=== PATIENT | female | born 1960 | race Caucasian/White ===

== ENCOUNTER 2018-05-04 09:56 | Inpatient (IN) | payer MEDICARE ==
[2018-05-04] MEDS ORDERED: Midazolam HCl 2 mg/2 ml Vial ONE ×2 (11:03→11:25)
[2018-05-04] MEDS ORDERED: Fentanyl 100 MCG/2 ML VIAL ONE (11:03)
[2018-05-04 11:21] LABS: Hemoglobin 12.2 g/dL (12.0-16.0); Mean Corpuscular HGB CONC 34.5 g/dL (32.0-36.0); Mean Corpuscular Volume 89.9 fL (78.0-98.0); Mean Platelet Volume 6.8 fL (7.4-10.4); Platelet Count 377 thou/uL (130-400); RBC Distribution Width 12.2 % (11.5-14.5); Red Blood Cell (RBC) Count 3.93 mill/uL (4.20-5.40); White Blood Cell (WBC) Count 9.6 thou/uL (4.8-10.8)
[2018-05-04] MEDS ORDERED: CEFAZOLIN/Water 2 GM/20 ML SYRINGE ONE (11:25)
[2018-05-04] MEDS ORDERED: Phenylephrine HCL 10 MG/ML VIAL ONE (11:36)
[2018-05-04 11:41] LABS: Anion Gap 13 mmol/L (10-20); BUN (Urea Nitrogen) 11 mg/dL (9.8-20.1); Calc. Creatinine Clearance 123 mL/min (70-130); Calcium 9.7 mg/dL (7.8-10.44); Carbon Dioxide 27 mmol/L (22-29); Chloride 104 mmol/L (98-107); Estimated GFR-MDRD Greater than 90; Glucose 101 mg/dL (70-105); Potassium 3.8 mmol/L (3.5-5.1); Sodium 140 mmol/L (136-145)
[2018-05-04] MEDS ORDERED: PROPOFOL 200 MG/20 ML VIAL ONE (13:07)
[2018-05-04] MEDS ORDERED: Glycopyrrolate 0.2 MG/ML 5 ML SYRINGE ONE (13:07)
[2018-05-04] MEDS ORDERED: Lidocaine 1% PF 5 ML VIAL ONE (13:07)
[2018-05-04] MEDS ORDERED: Dexamethasone 20 MG/5 ML VIAL ONE (13:07)
[2018-05-04] MEDS ORDERED: ePHEDrine/0.9% NaCl/PF SYRINGE 50 mg/10 ml ONE (13:07)
[2018-05-04] MEDS ORDERED: Ketorolac Tromethamine 30 MG/ML VIAL ONE (13:07)
[2018-05-04] MEDS ORDERED: Ondansetron HCl/PF 4 MG/2 ML Vial ONE (13:07)
[2018-05-04] MEDS ORDERED: Ondansetron HCl/PF 4 MG/2 ML Vial IVP PRN (14:30)
--- NOTE | 2018-05-04 14:59 | OP ---
DATE OF OPERATION: 05/04/2018 PREOPERATIVE DIAGNOSIS: Fracture of the right distal femoral shaft. DATE OF OPERATION: 05/04/2018 PREOPERATIVE DIAGNOSIS: Fracture of the right distal femoral shaft. POSTOPERATIVE DIAGNOSIS: Fracture of the right distal femoral shaft. PROCEDURE: Retrograde intramedullary interlocking rodding of the right femoral shaft. SURGEON: Andrei Rivera M.D. ANESTHESIA: General. TECHNIQUE: The patient was given preoperative IV antibiotics, taken to the operating room, placed in supine position. Satisfactory general anesthesia was performed. The right lower extremity was ster ilely prepped and draped in usual fashion. A longitudinal incision was made over the anterior aspect of the right knee and a medial parapatellar arthrotomy was performed. There were no arthritic mora es in the knee joint. A guidepin was placed in the distal femur just anterior to the intercondylar n otch and under fluoroscopic visualization to make sure that the guidepin was in good position. It wa s then overreamed with a 13-mm reamer. A longer guidewire was then placed through the distal femur, crossing the fracture and into the proximal aspect of the femur. Appropriate length was measured. T he intramedullary canal was then sequentially reamed up to a 14 mm. A Synthes 13-mm cannulated femor al nail was then inserted. This allowed for adequate alignment of the distal femoral shaft fracture. Two 5.0 locking screws were then placed from lateral to medial in the distal aspect of the femur an d then 2 screws were placed from anterior to posterior in the proximal aspect of the thigh. All this was performed under fluoroscopic visualization. This showed good position of the fracture and prope r placement of the intramedullary bell and the 4 screws. The wounds were then copiously irrigated wit h antibiotic solution and the anterior knee wound was closed using #2 Vicryl for the medial retinacul um. The fat and subcutaneous tissue was closed with 0 Vicryl, and skin was closed with 3-0 Rapide. The two small incisions made in the anterior aspect of the proximal thigh were closed with 3-0 Rapide . A soft sterile dressing was applied. The patient was awakened, extubated, and transferred to the recovery room in stable condition. ESTIMATED BLOOD LOSS: 200 mL. COMPLICATIONS: None.
--- NOTE | 2018-05-04 16:26 | RAD ---
INTRAOPERATIVE IMAGING OF RIGHT FEMUR: 05/04/18 COMPARISON: None. HISTORY: ORIF of right femur. FINDINGS: Seven intraoperative images are provided. Images demonstrate placement of an intramedullary bell trave rsing a displaced obliquely oriented femoral shaft fracture. There are two distal interlocking screws placed. There are also two proximal interlocking screws placed. IMPRESSION: ORIF as above. POS: TI
[2018-05-04 16:32] VITALS: BMI 24.5
--- NOTE | 2018-05-04 17:26 | ULT ---
BILATERAL LOWER EXTREMITY VENOUS DOPPLER ULTRASOUND: Date: 05/04/18 HISTORY: Recent right lower extremity surgery. TECHNIQUE: Mccollum scale ultrasound with color flow and spectral Doppler imaging of the deep venous systems of the lower extremities was performed bilaterally. FINDINGS: There is good flow, compression, and augmentation noted in the left common femoral, femoral, deep fem oral, popliteal, and greater saphenous veins. In the right lower extremity, there is poor visualization of the distal right popliteal vein. The pro ximal right popliteal vein, common femoral, femoral, deep femoral, posterior tibial, and greater saph enous veins demonstrate good flow, compression, and augmentation. IMPRESSION: Poor visualization of a portion of the right popliteal vein. No definite evidence of deep venous thro mbosis is seen in the lower extremity. POS: JOSE
[2018-05-04] MEDS ORDERED: Prevnar 13-Val Conj/PF 0.5 ML SYRINGE IM ONE (17:30)
[2018-05-04] MEDS ORDERED: Acetaminophen 500 MG TAB PO PRN (19:06)
[2018-05-04 19:29] LABS: Bacteria/HPF None Seen HPF (None Seen); RBC/HPF 0-3 HPF (0-3); WBC/HPF 21-50 HPF (0-3)
[2018-05-04 19:37] LABS: Hyaline Casts/LPF 0-3 HYALINE CAST LPF (0-3 Hyaline)
[2018-05-04] MEDS: CEFAZOLIN/Water 2 GM/20 ML SYRINGE SLOW IVP SCH (20:44)
[2018-05-04] MEDS: Midodrine HCl 5 MG TAB PO SCH (21:01)
[2018-05-05] MEDS ORDERED: Bisacodyl 10 MG SUPP PR PRN (01:00)
[2018-05-05] MEDS: CEFAZOLIN/Water 2 GM/20 ML SYRINGE SLOW IVP SCH (04:13)
[2018-05-05 04:51] LABS: Hemoglobin 10.5 g/dL (12.0-16.0)
[2018-05-05 04:59] LABS: ALT (SGPT) 11 U/L (8-55); AST (SGOT) 15 U/L (5-34); Albumin 3.8 g/dL (3.5-5.0); Alkaline Phosphatase 115 U/L (40-150); Anion Gap 13 mmol/L (10-20); BUN (Urea Nitrogen) 8 mg/dL (9.8-20.1); Bilirubin, Total 0.6 mg/dL (0.2-1.2); Calc. Creatinine Clearance 133 mL/min (70-130); Carbon Dioxide 25 mmol/L (22-29); Chloride 104 mmol/L (98-107); Estimated GFR-MDRD Greater than 90; Globulin 2.7 g/dL (2.4-3.5); Glucose 100 mg/dL (70-105); Protein, Total 6.5 g/dL (6.0-8.3); Sodium 138 mmol/L (136-145)
[2018-05-05] MEDS: Levothyroxine Sodium 100 MCG TAB PO SCH (05:08)
[2018-05-05] MEDS: Midodrine HCl 5 MG TAB PO SCH ×4 (09:03→21:28)
[2018-05-05] MEDS: Baclofen 10 MG TAB PO SCH (09:04)
[2018-05-05] MEDS: Gabapentin 300 MG CAP PO SCH (09:04)
[2018-05-05] MEDS ORDERED: Aspirin 325 MG TAB PO SCH (13:00)
[2018-05-05] MEDS: Ibuprofen 200 MG TAB PO PRN (14:24)
[2018-05-06] MEDS: Ibuprofen 200 MG TAB PO PRN ×2 (00:12→12:40)
[2018-05-06] MEDS: Levothyroxine Sodium 100 MCG TAB PO SCH (05:40)
[2018-05-06] MEDS ORDERED: Aspirin 325 MG TAB PO SCH (09:00)
[2018-05-06] MEDS: Midodrine HCl 5 MG TAB PO SCH (10:14)
[2018-05-06] MEDS: Gabapentin 300 MG CAP PO SCH (10:14)
[2018-05-06] MEDS: Baclofen 10 MG TAB PO SCH (10:14)
[2018-05-06 11:26] VITALS: BP 108/75; TEMP 97.7
--- NOTE | 2018-05-07 14:24 | DIS ---
DATE OF ADMISSION: 05/04/2018 DATE OF DISCHARGE: 05/06/2018 HISTORY OF PRESENT ILLNESS: Please see admission history and physical. HOSPITAL COURSE: The patient was diagnosed with fracture of the distal shaft of the right femur. Th e patient was admitted on the day of surgery. She was given perioperative IV antibiotics. She was t aken to the operating room and under general anesthetic underwent a retrograde intramedullary interlo cking rodding of the right femoral shaft. Postoperatively, the patient was given IV antibiotics for prophylaxis. Her vital signs remained stable. Her postoperative hemoglobin was 10.5, hematocrit was 30. Physical therapy was consulted to help mobilize the patient and since she was incomplete maura plegic from a neck injury many years ago, they were able to work with her and by 05/06, the patient w as able to transfer in and out of bed and into a wheelchair or regular chair. The patient's pain was minimal and she was ready for discharge on 05/06. DISCHARGE DIAGNOSES: 1. Displaced distal femoral shaft fracture. 2. Mild anemia secondary to expected blood loss from surgery. 3. Incomplete quadriplegia. DISCHARGE FOLLOWUP: The patient will follow up in the office in 1 week.
--- NOTE | 2018-05-09 17:56 | EKG ---
Test Reason : PREOP Blood Pressure : / mmHG Vent. Rate : 049 BPM Atrial Rate : 049 BPM P-R Int : 140 ms QRS Dur : 080 ms QT Int : 458 ms P-R-T Axes : 065 046 052 degrees QTc Int : 413 ms Marked sinus bradycardia Possible Lateral infarct , age undetermined Abnormal ECG No previous ECGs available Confirmed by Amy PRESSLEY ([id number]) on 05/09/2018 5:54:23 PM Referred By: [email or web address] Confirmed By:Amy PRESSLEY
== END 2018-05-06 13:05 | disposition home or self-care (01) | DRG 480 ==
LOC: SDC 09:56 → EDSTATUS 12:13 → SJJU 15:11
PROVIDERS: ADMIT Orthopaedic Surgery; ATTEND Orthopaedic Surgery
PROC: 0QH806Z Insertion of Intramedullary Internal Fixation Device into Right Femoral Shaft, Open Approach (ICD-10-PCS; principal; 2018-05-04)
DX: S72.401A Unspecified fracture of lower end of right femur, initial encounter for closed fracture (principal); G82.54 Quadriplegia, C5-C7 incomplete; D50.0 Iron deficiency anemia secondary to blood loss (chronic); E03.9 Hypothyroidism, unspecified; N31.9 Neuromuscular dysfunction of bladder, unspecified; Z79.899 Other long term (current) drug therapy; X58.XXXA Exposure to other specified factors, initial encounter
CPT/HCPCS: 36415; 76001; 80048; 80053; 81015; 85014; 85018; 85027; 87086; 93005; 93010; 93970; C1713; C1769; G8978-GP-CM; G8979-GP-CL; G8987-GO-CL; G8988-GO-CL; G8989-GO-CL; J1100; J1885; J2001; J2250; J2370; J2405; J2704; J3010

== ENCOUNTER 2021-01-30 14:47 | Outpatient (CLI) | payer MEDICARE ==
[2021-01-31 01:27] LABS: SARS-CoV-2 PCR by NAA Not Detected (NotDetected)
== END 2021-01-30 14:48 | disposition home or self-care (01) ==
LOC: LABBT 14:47
PROVIDERS: ATTEND Internal Medicine Gastroenterology
DX: Z01.812 Encounter for preprocedural laboratory examination (principal); Z20.822 Contact with and (suspected) exposure to COVID-19
CPT/HCPCS: U0003; U0005; 87635

== ENCOUNTER 2021-02-04 08:52 | Day surgery (SDC) | payer MEDICARE ==
[2021-02-01 14:07] VITALS: BMI 27.4
[2021-02-04] MEDS ORDERED: Lidocaine 1% PF 5 ML VIAL ONE (10:00)
[2021-02-04] MEDS ORDERED: PROPOFOL 200 MG/20 ML VIAL ONE (10:00)
[2021-02-04] MEDS ORDERED: Glycopyrrolate 0.2 MG/ML 5 ML SYRINGE ONE (10:00)
== END 2021-02-04 12:30 | disposition home or self-care (01) ==
LOC: SDC 08:52
PROVIDERS: ATTEND Internal Medicine Gastroenterology
PROC: 0DJD8ZZ Inspection of Lower Intestinal Tract, Via Natural or Artificial Opening Endoscopic (ICD-10-PCS; principal; 2021-02-04)
PROC: 0DB68ZX Excision of Stomach, Via Natural or Artificial Opening Endoscopic, Diagnostic (ICD-10-PCS; 2021-02-04)
DX: Z12.11 Encounter for screening for malignant neoplasm of colon (principal); K31.89 Other diseases of stomach and duodenum; K57.30 Diverticulosis of large intestine without perforation or abscess without bleeding; K29.70 Gastritis, unspecified, without bleeding; K25.9 Gastric ulcer, unspecified as acute or chronic, without hemorrhage or perforation; K21.9 Gastro-esophageal reflux disease without esophagitis; G82.50 Quadriplegia, unspecified; I10 Essential (primary) hypertension; E03.9 Hypothyroidism, unspecified; Z86.010 Personal history of colon polyps; Z79.899 Other long term (current) drug therapy
CPT/HCPCS: 43239; G0121; 88305; J2704

== ENCOUNTER 2021-03-07 16:52 | Emergency (ER) | payer MEDICARE ==
[2021-03-07 17:25] LABS: #Basophils 0.1 thou/uL (0.0-0.2); #Eosinphils 0.1 thou/uL (0.0-0.7); #Lymphocytes 2.1 thou/uL (1.20-3.40); #Monocytes 0.4 thou/uL (0.11-0.59); #Neutrophils 2.3 thou/uL (1.40-6.50); %Basophils 1.3 % (0.0-1.0); %Eosinophils 2.9 % (0.0-10.0); %Lymphocytes 41.9 % (21.0-51.0); %Monocytes 7.1 % (0.0-10.0); %Neutrophils 46.9 % (42.0-75.0); Hemoglobin 14.4 g/dL (12.0-16.0); Mean Corpuscular HGB CONC 32.8 g/dL (32.0-36.0); Mean Corpuscular Hemoglobin 30.1 pg (27.0-31.0); Mean Corpuscular Volume 91.7 fL (78.0-98.0); Mean Platelet Volume 7.8 fL (7.4-10.4); Platelet Count 242 thou/uL (130-400); Red Blood Cell (RBC) Count 4.78 mill/uL (4.20-5.40); White Blood Cell (WBC) Count 4.9 thou/uL (4.8-10.8)
[2021-03-07 17:45] LABS: ALT (SGPT) 32 U/L (8-55); AST (SGOT) 29 U/L (5-34); Alkaline Phosphatase 87 U/L (40-110); Anion Gap 13 mmol/L (10-20); BUN (Urea Nitrogen) 13 mg/dL (9.8-20.1); Bilirubin, Total 0.3 mg/dL (0.2-1.2); Calc. Creatinine Clearance 0 mL/min (70-130); Calcium 9.2 mg/dL (7.8-10.44); Carbon Dioxide 25 mmol/L (23-31); Chloride 106 mmol/L (98-107); Globulin 2.6 g/dL (2.4-3.5); Glucose 102 mg/dL (80-115); Protein, Total 6.6 g/dL (5.8-8.1); Sodium 140 mmol/L (136-145)
[2021-03-07 18:49] LABS: Bacteria/HPF 2+ HPF (None Seen); Bilirubin Negative (Negative); Blood, Urine 3+ (Negative); Clarity Turbid (Clear); Glucose, Urine (Dipstick) Normal (Negative); Ketone, Urine Negative (Negative); Leukocyte 500 Leu/uL (Negative); Nitrite 1+ (Negative); Protein, Urine (Dipstick) Negative (Neg-Trace); RBC/HPF Greater than 50 HPF (0-3); Specific Gravity, Urine 1.009 (1.002-1.036); Squamous Epithelial 0-3 HPF (0-3); Urobilinogen Normal mg/dL (Less than 2); WBC/HPF Greater than 50 HPF (0-3); Yeast-Budding 3+ HPF (None Seen); pH, Urine 5.5 (5.0-9.0)
[2021-03-07] MEDS ORDERED: cefTRIAXone\\ROCEPHIN 2 GM VIAL ONE (19:44)
== END 2021-03-07 20:40 | disposition home or self-care (01) ==
LOC: ERS 16:52
DX: N39.0 Urinary tract infection, site not specified (principal); I10 Essential (primary) hypertension; G82.50 Quadriplegia, unspecified; Z79.899 Other long term (current) drug therapy
CPT/HCPCS: 36415; 74176; 80053; 81003; 81015; 85025; 87077; 87086; 93005; 96365; J0696

== ENCOUNTER 2021-07-23 10:13 | Emergency (ER) | payer MEDICARE ==
[2021-07-23] MEDS ORDERED: cefTRIAXone\\ROCEPHIN 1 GM VIAL ONE (11:05)
[2021-07-23] MEDS ORDERED: Midodrine HCl 5 MG TAB PO SCH (11:15)
[2021-07-23 11:24] LABS: #Monocytes 0.3 thou/uL (0.11-0.59); #Neutrophils 3.6 thou/uL (1.40-6.50); %Basophils 0.2 % (0.0-1.0); %Eosinophils 0.5 % (0.0-10.0); %Lymphocytes 20.1 % (21.0-51.0); %Monocytes 6.3 % (0.0-10.0); %Neutrophils 72.9 % (42.0-75.0); Hemoglobin 13.9 g/dL (12.0-16.0); Mean Corpuscular HGB CONC 33.7 g/dL (32.0-36.0); Mean Corpuscular Hemoglobin 30.9 pg (27.0-31.0); Mean Corpuscular Volume 91.5 fL (78.0-98.0); Mean Platelet Volume 8.1 fL (7.4-10.4); Platelet Count 240 thou/uL (130-400); RBC Distribution Width 12.2 % (11.5-14.5); Red Blood Cell (RBC) Count 4.52 mill/uL (4.20-5.40); White Blood Cell (WBC) Count 4.9 thou/uL (4.8-10.8)
[2021-07-23 11:53] LABS: ALT (SGPT) 24 U/L (8-55); AST (SGOT) 23 U/L (5-34); Albumin 3.9 g/dL (3.4-4.8); Alkaline Phosphatase 56 U/L (40-110); Anion Gap 17 mmol/L (10-20); BUN (Urea Nitrogen) 23 mg/dL (9.8-20.1); Bilirubin, Total 0.3 mg/dL (0.2-1.2); Calc. Creatinine Clearance 0 mL/min (70-130); Calcium 9.7 mg/dL (7.8-10.44); Carbon Dioxide 23 mmol/L (23-31); Chloride 104 mmol/L (98-107); Globulin 2.7 g/dL (2.4-3.5); Glucose 136 mg/dL (80-115); Potassium 4.4 mmol/L (3.5-5.1); Protein, Total 6.6 g/dL (5.8-8.1); Sodium 140 mmol/L (136-145)
[2021-07-23 13:43] LABS: Bilirubin Negative (Negative); Blood, Urine Large (Negative); Glucose, Urine (Dipstick) 100 mg/dL (Negative); Ketone, Urine 15 mg/dL (Negative); Leukocyte Moderate (Negative); Nitrite Negative (Negative); Protein, Urine (Dipstick) 100 mg/dL (Neg-Trace); Specific Gravity, Urine 1.025 (1.005-1.030); pH, Urine 6.5 (5.0-9.0)
[2021-07-23 13:45] LABS: Clarity Cloudy (Clear)
[2021-07-23 13:49] LABS: RBC/HPF Greater than 50 HPF (0-3)
[2021-07-23 14:45] LABS: Lactic Acid 0.9 mmol/L (0.5-2.2)
[2021-07-23 16:16] LABS: SARS-CoV-2 NAA Rapid Test Not Detected (NotDetected)
== END 2021-07-23 17:17 | disposition home or self-care (01) ==
LOC: ERS 10:13
DX: N10 Acute pyelonephritis (principal); Z20.822 Contact with and (suspected) exposure to COVID-19
CPT/HCPCS: 51702; 80053; 83605; 85025; 87040; 87086; 96374; 99284; U0002; 36415; 81003; 81015; J0696

== ENCOUNTER 2021-10-01 10:32 | Outpatient (CLI) | payer MEDICARE | END 2021-10-01 10:33 | disposition home or self-care (01) | LOC: BICMAMMO 10:32 | PROVIDERS: ATTEND Obstetrics & Gynecology | DX: Z12.31 Encounter for screening mammogram for malignant neoplasm of breast (principal) | CPT/HCPCS: 77063; 77067 ==

== ENCOUNTER 2022-12-29 13:22 | Inpatient (IN) | payer MEDICARE, OTHER ==
[2022-12-29] MEDS ORDERED: Midodrine HCl 5 MG TAB PO SCH (14:30)
[2022-12-29 15:39] LABS: #Lymphocytes 0.7 thou/uL (1.20-3.40); #Monocytes 0.5 thou/uL (0.11-0.59); #Neutrophils 8.3 thou/uL (1.40-6.50); %Basophils 0.2 % (0.0-1.0); %Eosinophils 0.3 % (0.0-10.0); %Lymphocytes 7.2 % (21.0-51.0); %Monocytes 5.5 % (0.0-10.0); %Neutrophils 86.8 % (42.0-75.0); Hemoglobin 16.3 g/dL (12.0-16.0); Mean Corpuscular Hemoglobin 30.3 pg (27.0-31.0); Mean Corpuscular Volume 94.7 fl (78.0-98.0); Mean Platelet Volume 8.8 fL (7.4-10.4); Platelet Count 247 10x3/uL (130-400); RBC Distribution Width 12.3 % (11.5-14.5); Red Blood Cell (RBC) Count 5.39 mill/uL (4.20-5.40); White Blood Cell (WBC) Count 9.5 10x3/uL (4.8-10.8)
[2022-12-29 15:50] LABS: Bacteria/HPF 4+ HPF (None Seen); Bilirubin Negative (Negative); Blood, Urine Trace (Negative); Clarity Turbid (Clear); Glucose, Urine (Dipstick) Normal (Negative); Ketone, Urine Negative (Negative); Leukocyte 500 Leu/uL (Negative); Nitrite Negative (Negative); Protein, Urine (Dipstick) 50 mg/dL (Neg-Trace); Specific Gravity, Urine 1.021 (1.002-1.036); Urobilinogen Normal mg/dL (Less than 2); WBC/HPF Greater than 50 HPF (0-3)
[2022-12-29] MEDS ORDERED: VANCOMYCIN 1.25 GM/250 ML BAG 1.25 GM in Premix Bag 1 BAG IVPB SCH (17:00)
[2022-12-29 17:08] LABS: Albumin 3.6 g/dL (3.4-4.8)
[2022-12-29 17:10] LABS: Calcium 9.6 mg/dL (7.8-10.44); Chloride 106 mmol/L (98-107); Potassium 4.8 mmol/L (3.5-5.1); Sodium 134 mmol/L (136-145)
[2022-12-29 17:11] LABS: Globulin 2.6 g/dL (2.4-3.5); Glucose 149 mg/dL (80-115); Protein, Total 6.2 g/dL (5.8-8.1)
[2022-12-29 17:12] LABS: Anion Gap 12 mmol/L (10-20); Carbon Dioxide 21 mmol/L (23-31)
[2022-12-29 17:13] LABS: Bilirubin, Total 0.5 mg/dL (0.2-1.2)
[2022-12-29 17:14] LABS: Alkaline Phosphatase 65 U/L (40-110); Calc. Creatinine Clearance 0 mL/min (70-130); Estimated GFR 101
[2022-12-29 17:15] LABS: BUN (Urea Nitrogen) 22 mg/dL (9.8-20.1)
[2022-12-29 17:16] LABS: AST (SGOT) 17 U/L (5-34); Magnesium 2.6 mg/dL (1.6-2.6)
[2022-12-29] MEDS ORDERED: Cefepime 2 GM VIAL ONE (17:16)
[2022-12-29 17:18] LABS: ALT (SGPT) 12 U/L (8-55)
[2022-12-29] MEDS ORDERED: Ondansetron PF 4 MG/2 ML Vial IVP PRN (17:54)
[2022-12-29] MEDS ORDERED: Ondansetron ODT 4 MG TAB PO PRN (17:54)
[2022-12-29] MEDS ORDERED: Acetaminophen 325 MG TAB PO PRN (17:54)
[2022-12-29 21:09] VITALS: BMI 26.5
[2022-12-29] MEDS ORDERED: Baclofen 10 MG TAB PO SCH (21:30)
[2022-12-29] MEDS: Sodium Chloride 0.9% 1,000 ML IV SCH (23:59)
[2022-12-30] MEDS: Midodrine HCl 5 MG TAB PO SCH ×4 (00:17→21:24)
[2022-12-30] MEDS ORDERED: Midodrine HCl 5 MG TAB PO SCH (04:30)
[2022-12-30 04:39] LABS: #Lymphocytes 0.9 thou/uL (1.20-3.40); #Monocytes 0.7 thou/uL (0.11-0.59); %Basophils 0.5 % (0.0-1.0); %Eosinophils 0.4 % (0.0-10.0); %Monocytes 10.9 % (0.0-10.0); %Neutrophils 74.2 % (42.0-75.0); Hemoglobin 16.2 g/dL (12.0-16.0); Mean Corpuscular HGB CONC 32.9 g/dL (32.0-36.0); Mean Corpuscular Hemoglobin 31.1 pg (27.0-31.0); Mean Corpuscular Volume 94.5 fl (78.0-98.0); Mean Platelet Volume 8.2 fL (7.4-10.4); Platelet Count 202 10x3/uL (130-400); RBC Distribution Width 12.5 % (11.5-14.5); Red Blood Cell (RBC) Count 5.22 mill/uL (4.20-5.40); White Blood Cell (WBC) Count 6.7 10x3/uL (4.8-10.8)
[2022-12-30] MEDS: Levothyroxine Sodium 112 MCG TAB PO SCH (04:41)
[2022-12-30] MEDS: Levothyroxine Sodium 25 MCG TAB PO SCH (04:41)
[2022-12-30] MEDS: Vancomycin 1 GM in Premix Bag 1 BAG IVPB SCH ×2 (04:41→19:07)
[2022-12-30 05:21] LABS: Anion Gap 11 mmol/L (10-20); BUN (Urea Nitrogen) 20 mg/dL (9.8-20.1); Calc. Creatinine Clearance 107 mL/min (70-130); Calcium 9.5 mg/dL (7.8-10.44); Carbon Dioxide 25 mmol/L (23-31); Chloride 104 mmol/L (98-107); Estimated GFR 102; Glucose 124 mg/dL (80-115); Phosphorus 2.3 mg/dL (2.3-4.7); Potassium 3.2 mmol/L (3.5-5.1); Sodium 137 mmol/L (136-145)
[2022-12-30] MEDS ORDERED: FLU VACC QS2022-23(6MO UP)/PF 60 MCG/0.5 ML SYRINGE IM ONE (09:00)
[2022-12-30] MEDS: Baclofen 10 MG TAB PO SCH ×2 (09:41→21:23)
[2022-12-30] MEDS: Meropenem 1 GM in Sodium Chloride 0.9% 100 ML IVPB SCH ×3 (09:41→17:28)
[2022-12-30] MEDS: Gabapentin 300 MG CAP PO SCH (09:42)
[2022-12-30] MEDS: Famotidine 20 MG TAB PO SCH (09:42)
[2022-12-30] MEDS: Multivit, Therapeutic 1 TAB PO SCH (09:42)
[2022-12-30] MEDS: Sodium Chloride 0.9% 1,000 ML IV SCH (09:47)
[2022-12-30] MEDS ORDERED: Loperamide HCl 2 MG CAP PO PRN (14:30)
[2022-12-30] MEDS ORDERED: Melatonin 3 MG TAB PO PRN (16:57)
[2022-12-30 17:51] LABS: Vancomycin, Trough 9.6 ug/mL
[2022-12-30 22:35] LABS: Campy jejuni + coli by PCR Negative (Negative); STEC Shiga Toxin 1+2 Negative (Negative); Salmonella spp. by PCR Negative (Negative); Shigella spp + EIEC by PCR Negative (Negative)
[2022-12-31] MEDS: Sodium Chloride 0.9% 1,000 ML IV SCH ×3 (00:29→12:52)
[2022-12-31] MEDS: Meropenem 1 GM in Sodium Chloride 0.9% 100 ML IVPB SCH ×2 (00:30→12:51)
[2022-12-31] MEDS ORDERED: Midodrine HCl 5 MG TAB PO SCH (03:15)
[2022-12-31] MEDS: Levothyroxine Sodium 112 MCG TAB PO SCH (06:44)
[2022-12-31] MEDS: Vancomycin 1 GM in Premix Bag 1 BAG IVPB SCH (06:44)
[2022-12-31] MEDS: Levothyroxine Sodium 25 MCG TAB PO SCH (06:44)
[2022-12-31] MEDS ORDERED: Potassium Chloride 20 MEQ TAB PO SCH ×2 (08:00→14:00)
[2022-12-31] MEDS: Baclofen 10 MG TAB PO SCH (10:41)
[2022-12-31] MEDS: Gabapentin 300 MG CAP PO SCH (10:42)
[2022-12-31] MEDS: Multivit, Therapeutic 1 TAB PO SCH (10:42)
[2022-12-31] MEDS: Famotidine 20 MG TAB PO SCH (10:42)
[2022-12-31] MEDS: Midodrine HCl 5 MG TAB PO SCH ×2 (10:51→15:49)
[2022-12-31 12:43] LABS: Anion Gap 12 mmol/L (10-20); BUN (Urea Nitrogen) 8 mg/dL (9.8-20.1); Calc. Creatinine Clearance 134 mL/min (70-130); Calcium 8.6 mg/dL (7.8-10.44); Carbon Dioxide 24 mmol/L (23-31); Chloride 105 mmol/L (98-107); Estimated GFR 108; Glucose 110 mg/dL (80-115); Potassium 3.2 mmol/L (3.5-5.1); Sodium 138 mmol/L (136-145)
[2022-12-31 16:05] VITALS: BP 96/52; TEMP 97.5
[2022-12-31] MEDS ORDERED: Cefdinir 300 MG CAP PO SCH (21:00)
== END 2022-12-31 18:00 | disposition home or self-care (01) | DRG 871 ==
LOC: ERS 13:22 → 2NO 17:59 → OBSVTOIN 12-31 16:18
PROVIDERS: ADMIT Internal Medicine; ATTEND Internal Medicine
DX: A41.9 Sepsis, unspecified organism (principal); G82.50 Quadriplegia, unspecified; N39.0 Urinary tract infection, site not specified; R65.20 Severe sepsis without septic shock; I95.89 Other hypotension; E03.9 Hypothyroidism, unspecified; Z79.890 Hormone replacement therapy; Z79.899 Other long term (current) drug therapy
CPT/HCPCS: 36415; 51702; 71045; 80048; 80053; 80202; 81003; 81015; 83605; 83735; 84100; 84443; 84484; 85025; 86850; 86900; 86901; 87040; 87077; 87086; 87186; 87505; 93005; 96376; 97139; G0378; J0692; J2185; J3370; J3370-JW; J3490; J7050; U0003; U0005

== ENCOUNTER 2023-01-06 14:47 | Inpatient (IN) | payer MEDICARE, OTHER ==
[2023-01-06 15:16] LABS: #Eosinphils 0.1 thou/uL (0.0-0.7); #Lymphocytes 1.3 thou/uL (1.20-3.40); #Monocytes 0.5 thou/uL (0.11-0.59); #Neutrophils 4.1 thou/uL (1.40-6.50); %Basophils 0.7 % (0.0-1.0); %Lymphocytes 22.2 % (21.0-51.0); %Monocytes 7.9 % (0.0-10.0); %Neutrophils 68.1 % (42.0-75.0); Mean Corpuscular HGB CONC 33.9 g/dL (32.0-36.0); Mean Corpuscular Hemoglobin 31.2 pg (27.0-31.0); Mean Corpuscular Volume 92.1 fl (78.0-98.0); Mean Platelet Volume 7.8 fL (7.4-10.4); Platelet Count 293 10x3/uL (130-400); RBC Distribution Width 12.4 % (11.5-14.5); Red Blood Cell (RBC) Count 4.16 mill/uL (4.20-5.40)
[2023-01-06 15:34] LABS: ALT (SGPT) 21 U/L (8-55); AST (SGOT) 22 U/L (5-34); Albumin 3.3 g/dL (3.4-4.8); Alkaline Phosphatase 66 U/L (40-110); Anion Gap 11 mmol/L (10-20); BUN (Urea Nitrogen) 9 mg/dL (9.8-20.1); Bilirubin, Total 0.4 mg/dL (0.2-1.2); Calc. Creatinine Clearance 0 mL/min (70-130); Calcium 8.9 mg/dL (7.8-10.44); Carbon Dioxide 29 mmol/L (23-31); Chloride 99 mmol/L (98-107); Estimated GFR 106; Globulin 2.8 g/dL (2.4-3.5); Glucose 99 mg/dL (80-115); Potassium 4.3 mmol/L (3.5-5.1); Protein, Total 6.1 g/dL (5.8-8.1); Sodium 135 mmol/L (136-145)
[2023-01-06 17:41] LABS: Bacteria/HPF None Seen HPF (None Seen); Bilirubin Negative (Negative); Blood, Urine 2+ (Negative); Clarity Clear (Clear); Glucose, Urine (Dipstick) Normal (Negative); Ketone, Urine Negative (Negative); Leukocyte Negative Leu/uL (Negative); Nitrite Negative (Negative); Protein, Urine (Dipstick) 20 mg/dL (Neg-Trace); RBC/HPF 0-3 HPF (0-3); Specific Gravity, Urine 1.005 (1.002-1.036); Urobilinogen Normal mg/dL (Less than 2); WBC/HPF 0-3 HPF (0-3)
[2023-01-06] MEDS ORDERED: Piperacillin/Tazobactam 3.375 GM VIAL ONE (19:58)
[2023-01-06] MEDS ORDERED: Ondansetron PF 4 MG/2 ML Vial IVP PRN (23:13)
[2023-01-06] MEDS ORDERED: metroNIDAZOLE 500 MG/100 ML BAG ONE (23:40)
[2023-01-07] MEDS: metroNIDAZOLE 500 MG in Premix Bag 1 BAG IVPB SCH ×4 (00:38→22:04)
[2023-01-07 00:41] VITALS: BMI 26.5
[2023-01-07] MEDS: Sodium Chloride 0.9% 1,000 ML IV SCH ×4 (00:48→22:04)
[2023-01-07] MEDS ORDERED: traZODone HCl 50 MG TAB PO SCH (01:15)
[2023-01-07 06:38] LABS: #Eosinphils 0.1 thou/uL (0.0-0.7); #Lymphocytes 1.1 thou/uL (1.20-3.40); #Monocytes 0.5 thou/uL (0.11-0.59); #Neutrophils 3.7 thou/uL (1.40-6.50); %Basophils 0.5 % (0.0-1.0); %Lymphocytes 20.5 % (21.0-51.0); %Monocytes 8.9 % (0.0-10.0); %Neutrophils 69.2 % (42.0-75.0); Hemoglobin 12.1 g/dL (12.0-16.0); Mean Corpuscular HGB CONC 32.4 g/dL (32.0-36.0); Mean Corpuscular Hemoglobin 30.3 pg (27.0-31.0); Mean Corpuscular Volume 93.6 fl (78.0-98.0); Mean Platelet Volume 7.6 fL (7.4-10.4); Platelet Count 308 10x3/uL (130-400); RBC Distribution Width 12.3 % (11.5-14.5); Red Blood Cell (RBC) Count 4.01 mill/uL (4.20-5.40); White Blood Cell (WBC) Count 5.4 10x3/uL (4.8-10.8)
[2023-01-07 06:56] LABS: Anion Gap 11 mmol/L (10-20); BUN (Urea Nitrogen) 8 mg/dL (9.8-20.1); Calc. Creatinine Clearance 141 mL/min (70-130); Calcium 8.2 mg/dL (7.8-10.44); Carbon Dioxide 26 mmol/L (23-31); Chloride 106 mmol/L (98-107); Estimated GFR 109; Glucose 93 mg/dL (80-115); Potassium 4.1 mmol/L (3.5-5.1); Sodium 139 mmol/L (136-145)
[2023-01-07] MEDS ORDERED: Bisacodyl 10 MG SUPP PR PRN (14:46)
[2023-01-07] MEDS ORDERED: Polyethylene Glycol 3350 17 GM Packet PO PRN (14:46)
[2023-01-07] MEDS ORDERED: Fleet Enema 133 ML BOT PR SCH (15:00)
[2023-01-07] MEDS: Baclofen 10 MG TAB PO SCH (22:03)
[2023-01-07] MEDS: Vancomycin HCl 125 MG/5 ML (BATCHED) UDCUP PO SCH (22:17)
[2023-01-08] MEDS: Vancomycin HCl 125 MG/5 ML (BATCHED) UDCUP PO SCH ×4 (05:29→23:34)
[2023-01-08] MEDS: Levothyroxine Sodium 112 MCG TAB PO SCH (05:29)
[2023-01-08] MEDS: Sodium Chloride 0.9% 1,000 ML IV SCH ×3 (05:30→23:34)
[2023-01-08] MEDS: metroNIDAZOLE 500 MG in Premix Bag 1 BAG IVPB SCH ×2 (05:30→12:30)
[2023-01-08 07:16] LABS: Anion Gap 11 mmol/L (10-20); BUN (Urea Nitrogen) 6 mg/dL (9.8-20.1); Calc. Creatinine Clearance 134 mL/min (70-130); Calcium 7.9 mg/dL (7.8-10.44); Carbon Dioxide 22 mmol/L (23-31); Chloride 107 mmol/L (98-107); Estimated GFR 108; Glucose 109 mg/dL (80-115); Potassium 3.9 mmol/L (3.5-5.1); Sodium 136 mmol/L (136-145)
[2023-01-08 07:36] LABS: Hemoglobin 12.3 g/dL (12.0-16.0); Mean Corpuscular HGB CONC 32.6 g/dL (32.0-36.0); Mean Corpuscular Hemoglobin 31.7 pg (27.0-31.0); Mean Corpuscular Volume 97.4 fl (78.0-98.0); Mean Platelet Volume 7.4 fL (7.4-10.4); Platelet Count 356 10x3/uL (130-400); RBC Distribution Width 12.7 % (11.5-14.5); Red Blood Cell (RBC) Count 3.88 mill/uL (4.20-5.40); White Blood Cell (WBC) Count 4.8 10x3/uL (4.8-10.8)
[2023-01-08] MEDS: Baclofen 10 MG TAB PO SCH ×2 (08:22→21:20)
[2023-01-08] MEDS: Polyethylene Glycol 3350 17 GM Packet PO SCH (08:22)
[2023-01-08] MEDS: Midodrine HCl 5 MG TAB PO SCH (08:22)
[2023-01-08] MEDS: Gabapentin 300 MG CAP PO SCH (08:22)
[2023-01-08 09:24] LABS: Band 21 % (5-11); Lymphocytes 21 % (21-51); MDiff Complete? YES; Monocytes 2 % (0-10); Neutrophil 56 % (42-75); Platelet Morphology Comment Appears Adequate; Polychromasia SLIGHT = 2-3 cells (100X) (0-2/hpf)
[2023-01-09] MEDS: Vancomycin HCl 125 MG/5 ML (BATCHED) UDCUP PO SCH ×3 (05:14→17:53)
[2023-01-09] MEDS: Levothyroxine Sodium 112 MCG TAB PO SCH (05:14)
[2023-01-09] MEDS: Sodium Chloride 0.9% 1,000 ML IV SCH (05:32)
[2023-01-09 06:56] LABS: #Eosinphils 0.1 thou/uL (0.0-0.7); #Lymphocytes 0.9 thou/uL (1.20-3.40); #Monocytes 0.4 thou/uL (0.11-0.59); #Neutrophils 2.9 thou/uL (1.40-6.50); %Basophils 0.5 % (0.0-1.0); %Eosinophils 2.3 % (0.0-10.0); %Monocytes 9.6 % (0.0-10.0); %Neutrophils 67.6 % (42.0-75.0); Hemoglobin 12.7 g/dL (12.0-16.0); Mean Corpuscular HGB CONC 30.9 g/dL (32.0-36.0); Mean Corpuscular Hemoglobin 29.8 pg (27.0-31.0); Mean Corpuscular Volume 96.2 fl (78.0-98.0); Platelet Count 262 10x3/uL (130-400); Red Blood Cell (RBC) Count 4.25 mill/uL (4.20-5.40); White Blood Cell (WBC) Count 4.3 10x3/uL (4.8-10.8)
[2023-01-09] MEDS: Midodrine HCl 5 MG TAB PO SCH (08:47)
[2023-01-09] MEDS: Baclofen 10 MG TAB PO SCH (08:47)
[2023-01-09] MEDS: Gabapentin 300 MG CAP PO SCH (08:47)
[2023-01-09] MEDS: Polyethylene Glycol 3350 17 GM Packet PO SCH (08:48)
[2023-01-09 08:54] LABS: Calcium 8.9 mg/dL (7.8-10.44); Glucose 122 mg/dL (80-115)
[2023-01-09 08:56] LABS: Carbon Dioxide 24 mmol/L (23-31)
[2023-01-09 08:57] LABS: Calc. Creatinine Clearance 126 mL/min (70-130); Estimated GFR 106
[2023-01-09 08:58] LABS: BUN (Urea Nitrogen) 6 mg/dL (9.8-20.1)
[2023-01-09 09:13] LABS: Anion Gap 13 mmol/L (10-20); Chloride 106 mmol/L (98-107); Potassium 4.1 mmol/L (3.5-5.1); Sodium 139 mmol/L (136-145)
[2023-01-09 17:12] VITALS: BP 120/66; TEMP 98.4
== END 2023-01-09 17:59 | disposition home or self-care (01) | DRG 371 ==
LOC: ERS 14:47 → T4-B 19:42 → OBSVTOIN 01-08 15:58
PROVIDERS: ADMIT Hospitalist; ATTEND Hospitalist
DX: A04.72 Enterocolitis due to Clostridium difficile, not specified as recurrent (principal); G82.50 Quadriplegia, unspecified; K92.1 Melena; N39.0 Urinary tract infection, site not specified; K56.41 Fecal impaction; E03.9 Hypothyroidism, unspecified; Z79.899 Other long term (current) drug therapy
CPT/HCPCS: 36415; 80048; 80053; 81003; 81015; 83605; 85025; 87324; 87449; 87493; 96365; 96375; 96376; 97139; G0378; J0744; J2543; J7050